=== PATIENT | female | born 1960 | race Caucasian/White ===

== ENCOUNTER 2017-01-23 22:20 | Emergency (ER) | payer OTHER ==
[2017-01-23 22:56] VITALS: BP 171/88
== END 2017-01-23 22:56 | disposition home or self-care (01) ==
LOC: ED 22:20
DX: L30.9 Dermatitis, unspecified (principal); J45.909 Unspecified asthma, uncomplicated; E78.00 Pure hypercholesterolemia, unspecified

== ENCOUNTER 2017-05-15 08:50 | Emergency (ER) | payer OTHER ==
[~2017-05-15] VITALS: Ht 180.3 cm; Wt 114.3 kg
[2017-05-15 08:56] VITALS: Ht 180.3 cm; Wt 114.3 kg
[2017-05-15 10:29] VITALS: BP 120/65
== END 2017-05-15 10:29 | disposition home or self-care (01) ==
LOC: ED 08:50
DX: M25.561 Pain in right knee (principal); M23.91 Unspecified internal derangement of right knee; J45.909 Unspecified asthma, uncomplicated; E78.00 Pure hypercholesterolemia, unspecified